=== PATIENT | male | born 1980 | race Caucasian/White ===

== ENCOUNTER 2018-02-01 05:56 | Emergency (ER) | payer OTHER ==
--- NOTE | 2018-02-01 06:13 | ED Physician Chart ---
ED Chief Complaint/HPI - Patient Information Date Seen:: 02/01/18 Time Seen:: 06:08 Chief Complaint:: vomiting History of Present Illness:: THIS IS A 37 YR OLD MALE WHO STATES THAT HE HAS BEEN VOMITING (ABOUT 10 TIMES) AND THIS MORNING HE VOMITED UP BLOOD. HE STATES THAT HE DRINKS ALCOHOL TOO MUCH. THE PATIENT DENIES FEVER AND DIARRHEA. HE DENIES USING DRUGS AND SMOKING. 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 HE DENIES DIABETES BUT ADMITS TO HYPERTENSION. Allergies:: Allergies Allergy/AdvReac Type Severity Reaction Status Date / Time No Known Allergies Allergy Verified 02/01/18 05:56 Vitals:: Vital Signs - 8 hr 02/01/18 05:57 Temp 97.9 F HR 100 RR 18 BP 144/92 O2 Sat % 98 Historian:: Patient Review:: Nurse's Note Reviewed ED Review of Systems - Review of Systems General/Constitutional: No fever, No chills, No weight loss, No weakness, No diaphoresis, No edema, No loss of appetite Skin: No skin lesions, No rash, No bruising Head: No headache, No light-headedness Eyes: No loss of vision, No pain, No diplopia ENT: No earache, No nasal drainage, No sore throat, No tinnitus Neck: No neck pain, No swelling, No thyromegaly, No stiffness, No mass noted Cardio Vascular: No chest pain, No palpitations, No PND, No orthopnea, No edema Pulmonary: No SOB, No cough, No sputum, No wheezing GI: Nausea, Vomiting, No diarrhea, No pain, No melena, No hematochezia, No constipation, Hematemesis G/U: No dysuria, No frequency, No hematuria Musculoskeletal: No bone or joint pain, No back pain, No muscle pain Endocrine: No polyuria, No polydipsia Psychiatric: No prior psych history, No depression, No anxiety, No suicidal ideation Hematopoietic: No bruising, No lymphadenopathy Allergic/Immuno: No urticaria, No angioedema Neurological: No syncope, No focal symptoms, No weakness, No paresthesia, No headache, No seizure, No dizziness, No confusion, No vertigo ED Past Medical History - Past Medical History Obtainable: Yes Past Medical History: HTN Family History: None Social History: Non Smoker, Alcohol, No Drug Use, Employed Surgical History: Appendectomy, other (SARCOMA REMOVED FROM HIS LEFT LOWER LEG. HAD AN EXPLORATORY LAP DONE) Family Medical History - Family Member Grandmother History Unknown: Yes Living Status: Hx Family Cancer: Yes ED Physical Exam - Physical Examination General/Constitutional: Awake, Well-developed, well-nourished, Alert, No distress, GCS 15, Non-toxic appearing, Ambulatory Head: Atraumatic Eyes: Lids, conjuctiva normal, PERRL, EOMI Skin: Nl inspection, No rash, No skin lesions, No ecchymosis, Well hydrated, No lymphadenopathy ENMT: External ears, nose nl, Nasal exam nl, Lips, teeth, gums nl Neck: Nontender, Full ROM w/o pain, No JVD, No nuchal rigidity, No bruit, No mass, No stridor Respiratory: Nl effort/Exclusion, Clear to Auscultation, No Wheeze/Rhonchi/Rales Cardio Vascular: RRR, No murmur, gallop, rubs, NL S1 S2 GI: No tenderness/rebounding/guarding, No organomegaly, No hernia, Normal BS's, Nondistended, No mass/bruits, No McBurney tenderness : No CVA tenderness Extremities: No tenderness or effusion, Full ROM, normal strength in all extremities, No edema, Normal digits & nails Other Extremities comments:: LEFT LOWER LEG SMALLER THAN THE RIGHT LOWER LEG Neuro/Psych: Alert/oriented, DTR's symmetric, Normal sensory exam, Normal motor strength, Judgement/insight normal, Mood normal, Normal gait, No focal deficits Misc: Normal back, No paraspinal tenderness ED Labs/Radiology/EKG Results - EKG Interpretations EKG Time:: 06:11 Rate & Rhythm: RATE = 91, SINUS [place]: LEFT AXIS ED Assessment - Assessment General Assessment: VOMITING POSSIBLE KARISHMA PEDERSEN TEAR ED Septic Shock - . Is Septic Shock (SBP<90, OR Lactate>4 mmol\L) present?: No - <6hrs of presentation: Vital Signs: Vital Signs - 8 hr 02/01/18 05:57 Temp 97.9 F HR 100 RR 18 BP 144/92 O2 Sat % 98 ED Reassessment (Disposition) - Diagnosis Diagnosis:: VOMITING - Aftercare/Follow up Instructions Notes:: THIS PATIENT WILL BE CARED FOR BY DR. LANG STARTING AT 0700 HRS.
[2018-02-01 06:30] LABS: % BASOPHILS 0.4 % (0.0-2.0); % EOSINOPHILS 2.7 % (0.0-5.0); % LYMPHOCYTES 40.5 % (20.0-50.0); % MONOCYTES 9.8 % (2.0-10.0); % NEUTROPHILS 46.6 % (40.0-80.0); EOSINOPHILE ABSOLUTE 0.1 Th/cmm (0.1-0.4); HEMATOCRIT 49.8 % (41.0-60); HEMOGLOBIN 17.3 gm/dL (12-16); LYMPHOCYTE ABSOLUTE 2.1 Th/cmm (1.5-3.0); MEAN CELL VOLUME 90.7 fl (80-99); MEAN CORPUSCULAR HEMOGLOBIN 31.6 pg (26.0-30.0); MEAN CORPUSCULAR HGB CONC 34.8 pg (28.0-36.0); MEAN PLATELET VOLUME 7.8 fl; MONOCYTE ABSOLUTE 0.5 Th/cmm (0.3-1.0); NEUTROPHILE ABSOLUTE 2.4 Th/cmm (1.8-8.0); PLATELET COUNT 230 Th/cmm (150-400); RED BLOOD COUNT 5.49 Mil/cmm (4.30-5.70); RED CELL DISTRIBUTION WIDTH 12.7 % (11.5-20.0); WHITE BLOOD COUNT 5.1 Th/cmm (4.8-10.8)
[2018-02-01 06:46] LABS: INR 0.98 (0.5-1.4); PROTHROMBIN TIME (TEST) 10.2 SECONDS (9.5-11.5)
[2018-02-01 06:56] LABS: ALB/GLOB RATIO 1.4 (1.0-1.8); ALBUMIN 4.7 gm/dL (4.2-5.5); ALKALINE PHOSPHATASE 46 U/L (34-104); AMYLASE SERUM 66 U/L (29-103); ANION GAP 16.4 (7.0-16.0); BILIRUBIN,TOTAL 0.5 mg/dL (0.3-1.0); BUN - UREA NITROGEN 13 mg/dL (7-25); CALCIUM SERUM 9.6 mg/dL (8.6-10.3); CARBON DIOXIDE 21.2 mEq/L (21.0-31.0); CHLORIDE 105 mEq/L (98-107); CREATININE - SERUM 0.9 mg/dL (0.7-1.3); GFR AFRICAN-AMERICAN > 60.0 ml/min (>90); GFR NON AFRICAN-AMERICAN > 60.0 ml/min; GLUCOSE 85 mg/dL (70-105); POTASSIUM SERUM 3.6 mEq/L (3.5-5.1); SGOT 30 U/L (13-39); SGPT/ALT 47 U/L (7-52); SODIUM SERUM 139 mEq/L (136-145)
[2018-02-01] MEDS ORDERED: Pantoprazole 80 MG in Sodium Chloride 0.9% 100 ML IV ONE (07:19)
[2018-02-01] MEDS ORDERED: Lactated Ringer 1,000 ML IV ONE (07:20)
[2018-02-01] MEDS ORDERED: Pantoprazole 80 MG in Sodium Chloride 0.9% 100 ML IV SCH (07:30)
== END 2018-02-01 07:51 | disposition left against medical advice (07) ==
LOC: ER 05:56
DX: R11.2 Nausea with vomiting, unspecified (principal); I10 Essential (primary) hypertension; Z90.49 Acquired absence of other specified parts of digestive tract
CPT/HCPCS: 36415-UA; 80053-TC; 80320-TC; 82140-TC; 82150-TC; 84443-TC; 84484-TC; 85025-TC; 85610-TC; 85730-TC; 93005; Z7502